=== PATIENT | female | born 1990 | race Caucasian/White ===

== ENCOUNTER 2016-10-29 15:14 | Emergency (ER) | payer SELFPAY ==
[~2016-10-29] VITALS: Ht 160 cm; Wt 79.5 kg
[~2016-10-29 15:14] MED LIST: NPR500T PO; ONDA4TAB9 PO
[2016-10-29 15:15] VITALS: BP 126/95; PULSE 77; RESP 16; O2SAT 100
--- NOTE | 2016-10-29 15:51 | ED.REPORT ---
HPI-General Illness Date of Service Oct 29, 2016 ED Provider: Dr. Cornell Pt is a healthy 25 y/o female presenting to the ED c/o worsening right flank pain onset 06:00 today. The patient tried to eat a banana but became nauseous with decreased appetite and has caused diaphoresis. Her pain was initially dull and mild but has become sharp and constant. Her pain seems to radiate somewhat to the RUQ and is not exacerbated or relieved by anything. Her pain today is not similar to her episode of symptomatic ovarian cyst. She denies any recent illnesses, bowel or bladder incontinence, fever, chills, vomiting, hematuria, bloody stools, vaginal discharge or bleeding, dysuria, constipation, diarrhea. She has never had any abdominal surgeries and she had a normal BM this morning. Her mother, brother, and sister all had gallbladder disease. She is self-pay. Nursing Notes Stated Complaint: RIGHT SIDE PAIN Chief Complaint: Female Abdominal Pain Nursing Notes Reviewed: Yes Allergies: Coded Allergies: No Known Allergies (Unverified Allergy, Unknown, 10/29/16) Scheduled PRN Naproxen (Naproxen) 500 Mg Tab 500 MG PO BID PRN PRN For Pain Ondansetron ODT (Zofran ODT) 4 Mg Tablet 4 MG PO Q4H PRN PRN For Nausea General Time Seen by MD: 15:51 Chief Complaint Abdominal pain Hx Obtained From: Patient Arrived By: Walk-in Sudden in Onset?: No Onset Occurred: 9 - 12 hours ago Symptom Duration: Since onset Location: : Abdomen Quality: Painful Severity: Current: Severe Severity: Maximum: Severe Recent Healthcare: No recent doctor visit, No recent hospitalization Similar Sx Previous: No Past Medical History Past Medical History Ovarian Cyst Iron deficiency anemia after beginning menstruation Otherwise healthy Past Surgical History Denies Family History Gallbladder disease Smoking History Never Smoker Social History Alcohol Use: "Social" Drug Use: THC Ambulatory Status Independent Review of Systems Full Review of Systems Constitutional: Denies: Chills, Fever Respiratory: Denies: Non-productive cough, Shortness of breath Cardiovascular: Denies: Chest pain, Dyspnea on exertion GI: Reports: Abdominal pain, Anorexia, Nausea, Denies: Bloody/tarry stool, Constipation, Diarrhea, Hematochezia, Melena, Mucousy stool, Vomiting Female: Reports: Flank pain, Denies: Dysuria, Hematuria, Vaginal bleeding - abnl, Vaginal discharge Neurologic: Denies: Bladder dysfunction, Bowel dysfunction Complete sys rev & neg: except as marked. Physical Exam Constitutional: Well-developed, well-nourished. Diaphoretic. Uncomfortable and in pain. Moderate distress secondary to pain. Tearful. Head: Normocephalic and atraumatic. Mouth/Throat: Oropharynx is clear and moist. No oropharyngeal exudate. Eyes: EOM are normal. Pupils are equal, round, and reactive to light. Neck: Supple, no tracheal deviation. Cardiovascular: Normal rate, regular rhythm. Equal and intact distal pulses throughout. Pulmonary/Chest: Effort normal and breath sounds normal. No respiratory distress. Abdominal: Soft. No distension. Diffuse tenderness about right upper abdomen and right flank. No lower abdominal tenderness. No rebound or guarding. Bowel sounds present. Right CVAT present. Musculoskeletal: Range of motion grossly intact, moving all extremities. No edema appreciated. Neurological: AOx3. Grossly nonfocal exam. Strength and sensation intact and equal to bilateral upper and lower extremities. Skin: Warm and dry, no rashes or pallor appreciated. Psychiatric: Appropriate mood and affect. Behavior appears normal. Vital Signs Vital Signs Date Time Temp Pulse Resp B/P Pulse Ox O2 Delivery O2 Flow Rate FiO2 10/29/16 23:22 36.8 68 16 121/54 97 Room Air 10/29/16 22:47 68 16 121/54 97 Room Air 10/29/16 18:32 84 18 129/42 100 Room Air 10/29/16 17:02 66 16 139/74 100 Room Air 10/29/16 15:15 36.8 77 16 126/95 100 Room Air Initial VS: Reviewed, Vital signs normal Interpretation & Diagnostics Lab Results Interpretation Result Diagram: 10/29/16 1620 10/29/16 1620 Test 10/29/16 15:52 10/29/16 16:20 10/29/16 17:04 Urine Color Yellow (YELLOW) Urine Appearance Clear (CLEAR,HAZY) Urine pH 8.5 (5.0-8.0) Urine Specific [place] 1.015 (1.003-1.035) Urine Protein Tracemg/dL (NEG,TRACE) Urine Glucose (UA) Negativemg/dL (NEGATIVE) Urine Ketones Negativemg/dL (NEGATIVE) Urine Occult Blood Small (NEGATIVE) Urine Nitrite Negative (NEGATIVE) Urine Bilirubin Negative (NEGATIVE) Urine Urobilinogen Normalmg/dL (NORMAL) Urine Leukocyte Esterase Small (NEGATIVE) Urine RBC 0-2/hpf (0-2) Urine WBC 6-10/hpf (0-5) Urine Epithelial Cells Many/hpf (NONE-MOD) Urine Crystals None seen (NONE SEEN) Urine Bacteria Many/hpf (NONE-FEW) Urine Hyaline Casts None/lpf (NONE) Urine Granular Casts None seen (NONE SEEN) Urine Waxy Casts None seen (NONE SEEN) Urine Red Blood Cell Casts None seen (NONE SEEN) Urine White Blood Cell Casts None seen (NONE SEEN) Urine Mucus None seen (None Seen) Urine Trichomonas None seen (NONE SEEN) Urine Yeast None (NONE SEEN) Urinalysis Comment None Urine Culture Reflexed Indicated White Blood Count 9.8th/mm3 (3.8-10.1) Red Blood Count 4.35mil/mm3 (3.90-5.20) Hemoglobin 12.5g/dL (12.0-15.6) Hematocrit 36.4% (35.0-46.0) Mean Corpuscular Volume 83.7fL (81-100) Mean Corpuscular Hemoglobin 28.7pg (27.0-35.0) Mean Corpuscular Hemoglobin Concent 34.3% (32.0-37.0) Red Cell Distribution Width 13.5% (12.3-15.4) Platelet Count 452bil/L (150-400) Neutrophils (%) (Auto) 66.3% (40-74) Lymphocytes (%) (Auto) 19.5% (14-46) Monocytes (%) (Auto) 7.9% (4-12) Eosinophils (%) (Auto) 5.7% (0-5) Basophils (%) (Auto) 0.4% (0-3) Prothrombin Time 10.7sec (8.1-12.5) Prothromb Time International Ratio 1.00ratio Sodium Level 137mEq/L (134-144) Potassium Level 3.5mEq/L (3.5-5.2) Chloride Level 101mEq/L (97-108) Carbon Dioxide Level 21mmol/L (18-29) Blood Urea Nitrogen 7mg/dL (6-20) Creatinine 0.54mg/dL (0.57-1.00) Estimat Glomerular Filtration Rate 200mL/min (>59) Glucose Level 99mg/dL (60-99) Calcium Level 9.3mg/dL (8.5-10.1) Magnesium Level 1.8mg/dL (1.6-2.6) Total Bilirubin 0.4mg/dL (0.0-1.2) Aspartate Amino Transf (AST/SGOT) 12U/L (0-50) Alanine Aminotransferase (ALT/SGPT) 8U/L (0-32) Alkaline Phosphatase 54U/L (25-150) Total Protein 7.6g/dL (6.4-8.4) Albumin 4.2g/dL (3.4-5.0) Lipase 34U/L (13-60) Lactic Acid Level 0.8mmol/L (0.4-2.0) CT Abd / Pelvis Interpretation IMPRESSION: 1. There is mild fat stranding in the right abdomen just below the hepatic flexure and lateral to the ascending colon. The appendix is normal. The CT finding may be secondary to epiploic. Recommend clinical correlation. 2. Small amount of free fluid in paracolic gutters bilaterally. 3. A complex cyst in the right adnexa measuring 4.4 x 5.3 cm. There is a small amount of complex free fluid in in the cul-de-sac. The CT finding could be secondary to ruptured hemorrhagic ovarian cyst. The differential diagnosis is a tubo-ovarian abscess. Pelvic ultrasound may be helpful if clinically indicated. 4. No urinary stones or hydronephrosis. Dictated by: Asaf Posada M.D. on 10/29/2016 at 17:43 Approved by: Asaf Posada M.D. on 10/29/2016 at 17:57 Study type: Abdominal CT IV contrast Interpretation / Wet Read by: Interpret - Radiologist, Discussed w radiologist US Focused non-OB Pelvis IMPRESSION: 1. A complex mass is present in the right adnexa. There is moderate amount of free fluid with internal echo within the cul-de-sac. On Doppler ultrasound, there is no definitive internal vascularity within the mass. No evidence for dilated fallopian tubes (hydrosalpinx). The right ovary is identified and has normal morphology and vascularity. The left ovary is not visualized. Differential diagnoses for this right adnexal mass include a tubo-ovarian abscess, a hematoma, and less likely a neoplastic mass. The left ovary is not identified on the ultrasound. A torsed left ovary located in the right adnexa is a possibility, but felt highly unlikely. The left ovary could be seen on the CT performed earlier today and had normal appearance. CNC SET UP OPERATOR consultation is suggested. 2. Normal uterus. Dictated by: Asaf Posada M.D. on 10/29/2016 at 20:49 Transcribed by: JABARI on 10/29/2016 at 21:00 Approved by: Asaf Posada M.D. on 10/29/2016 at 21:28 Exam Performed by: Allied health pract Exam Type: Diagnostic Exam Interpreted by: Radiologist Re-Eval/Medical Decision Med Decision/Clinical Course 25F w/ R sided abd pain. Primarily R flank and upper part of R abdomen. Labs reviewed, noted above. CT w/ no evidence of appendicitis, though is consistent w / epiploic appendagitis. On reassessment, still w/ significant pain. Decision to obtain TVUS made and this demonstrated a mass in the R adnexa concerning for TOA or less likely ovarian torsion. Consulted w/ CNC SET UP OPERATOR as below. They feel she's safe to go home, do not think it's a TOA or other infection, nor torsion; this seems reasonable. Very careful return precautions discussed. Patient agree able to plan, no further questions. Time of Eval: 18:45 Re-Evaluation/Progress Note: Pt rechecked. Feeling better and pain improved. Awaiting pelvic US. Time of Eval: 20:30 Patient Status: Condition improved, Mild relief, Pain improved Re-Evaluation/Progress Note: Pt rechecked. Informed pt of need for possible admission due to concern for tubo-ovarian abscess. Pt understands and agrees with plan. All questions addressed. Time of Eval: 22:45 Re-Evaluation/Progress Note: Pt rechecked. After CNC SET UP OPERATOR consult plan for discharge. Informed pt of plan for treatment. Pt understands and agrees with plan for treatment. F/U instructions and RTER warnings given. All questions addressed. Consultation : Referral / Consult Name: Gabby Soliman MD Call Returned at: 20:56 Low Emission Automobile Designer: Will see patient, Agrees with eval, Agrees with plan Note: Discussed case with OB-CNC SET UP OPERATOR. Will review imaging and call back. 22:36 - after evaluation in the ED. Believes the patient is OK to go home from a CNC SET UP OPERATOR perspective. Does not think she has a TOA or torsion. Believes she has a ruptured ovarian cyst. Will see the patient in follow-up. Counseled Regarding: Diagnosis, Lab results, Need for follow-up, When/why to return to ED Discharge & Departure Primary Impression: Abdominal pain Abdominal location: lower abdomen, unspecified Qualified Code: R10.30 - Lower abdominal pain, unspecified Additional Impression: Epiploic appendagitis Disposition: Home Discharge Condition All VS Reviewed: Yes Condition: Improved Patient Instructions: Acute Abdominal Pain (ED) Additional Instructions: Your CT scan today shows a possibility for epiploic appendagitis. Take [place] every 6 hours as directed for severe or breakthrough pain. See the instructions below for this medication. Otherwise take 600 mg Ibuprofen every 6 hours for aching pain. Return to the emergency department if you experience worsening abdominal pain, fever, persistent vomiting, or for other symptoms concerning to you. Follow-up with a primary care doctor and the CNC SET UP OPERATOR doctor by the end of the week. If you do not have a primary care doctor the [facility] is happy to see you. You have been prescribed a narcotic for pain relief. These drugs are usually combined with acetaminophen (Tylenol#3, Percocet, Darvocet, Anexsia, Vicodin) or aspirin (Empirin#3, Percodan, Synalogs-DC) for increased effect. Narcotics act on the central nervous system to reduce pain; they also impair mental alertness and physical abilities. We advise you not to drink alcohol, drive a car, or operate dangerous equipment when you are taking these drugs. You can lessen stomach irritation from your medicine by taking it with meals or a full glass of water. Common side effects of narcotics are: Nausea and vomiting, heartburn, constipation, dizziness, sleepiness, and mood changes. If you have bothersome side effects or symptoms of an allergic reaction (itching, hives, rash), stop taking your medicine and call your doctor or the emergency room right away. Please keep your narcotic medicine well out of the reach of children. Referrals: Gabby Soliman MD [facility] Scribe Attestation Portions of this note were transcribed by Dimitris Lewis. I, Dr. Cornell, personally performed the history, physical exam and medical decision-making; I reviewed and confirmed the accuracy of the information in the transcribed note. Signed by Jose Walsh, 10/29/16 - 1599 copies to: Gabby Soliman MD; [facility] Chinmay Cornell MD Oct 29, 2016 15:51 DIMITRIS LEWIS Oct 29, 2016 16:01
[2016-10-29] MEDS ORDERED: 0.9% Sodium Chloride 1,000 ML IV ONE (15:58)
[2016-10-29] MEDS ORDERED: Ondansetron 2 mg/mL 2 mL Inj IVPUSH PRN (16:00)
[2016-10-29 16:06] LABS: APPEARANCE,URINE CLEAR (CLEAR,HAZY); COLOR,URINE YELLOW (YELLOW); OCCULT BLOOD,URINE SMALL (NEGATIVE); PH,URINE 8.5 (5.0-8.0); UROBILINOGEN,URINE NORMAL (NORMAL)
[2016-10-29] MEDS: HYDROmorphone 0.5 mg/0.5 mL iSecure Syringe IVPUSH PRN ×4 (16:26→17:48)
[2016-10-29 16:42] LABS: BASOPHILS % (AUTO) 0.4 % (0-3); EOSINOPHILS % (AUTO) 5.7 % (0-5); MONOCYTES % (AUTO) 7.9 % (4-12); Mean Corpuscular Hemoglobin 28.7 pg (27.0-35.0); Mean Corpuscular Volume 83.7 fL (81-100); NEUTROPHILS % (AUTO) 66.3 % (40-74); Platelet Count 452 bil/L (150-400)
[2016-10-29 17:02] VITALS: BP 139/74; PULSE 66; RESP 16; O2SAT 100
[2016-10-29 17:09] LABS: Magnesium 1.8 mg/dL (1.6-2.6)
--- NOTE | 2016-10-29 17:59 | DRSVH ---
PROCEDURE: CT ABDOMEN AND PELVIS WITH CONTRAST ([id number]) INDICATIONS: Right upper abdominal pain and flank pain. TECHNIQUE: After the administration of intravenous contrast, 5 mm thick sections acquired from the diaphragm to the symphysis. 5 mm coronal and sagittal reformats were acquired. For radiation dose reduction, the following was used: automated exposure control, adjustment of mA and/or kV according to patient dirk chase. COMPARISON: [facility], CT, CT KUB, 02/10/2015, 13:03. FINDINGS: Image quality: Excellent. ABDOMEN: Lung bases: Lung bases are clear. Heart size is normal. Solid organs: Liver and spleen are normal in size and enhancement. Gallbladder is normal. Biliary system is non dilated. Pancreas enhances normally. No adrenal nodules. Kidneys demonstrate normal size and enhancement, without hydronephrosis. Peritoneum and bowel: Appendix is normal. There is mild stranding in the right abdomen just lateral to the ascending colon below the hepatic flexure. Bowel loops demonstrate normal wall thickness and c aliber. A small amount of free fluid is present in the paracolic gutters bilaterally. No free air. Nodes and vessels: No retroperitoneal or mesenteric adenopathy by size criteria. There are several normal-sized lymph nodes in the right lower quadrant, which appears unchanged and are nonspecific. Ao rta and inferior vena cava are normal in size. Miscellaneous: No ventral hernias. PELVIS: Genitourinary: Bladder wall thickness is normal. There is a complex cyst in the right adnexa measur ing 4.4 x 5.3 cm. A small amount of complex fluid is present in the cul-de-sac. Miscellaneous: No inguinal hernias or adenopathy. Bones: No suspicious bony lesions. No vertebral body compression fractures. IMPRESSION: 1. There is mild fat stranding in the right abdomen just below the hepatic flexure and lateral to the ascending colon. The appendix is normal. The CT finding may be secondary to epiploic. Recommend clin ical correlation. 2. Small amount of free fluid in paracolic gutters bilaterally. 3. A complex cyst in the right adnexa measuring 4.4 x 5.3 cm. There is a small amount of complex free fluid in in the cul-de-sac. The CT finding could be secondary to ruptured hemorrhagic ovarian cyst. The differential diagnosis is a tubo-ovarian abscess. Pelvic ultrasound may be helpful if clinically indicated. 4. No urinary stones or hydronephrosis. Dictated by: Asaf Posada M.D. on 10/29/2016 at 17:43 Approved by: Asaf Posada M.D. on 10/29/2016 at 17:57
[2016-10-29] MEDS ORDERED: HYDROmorphone 1 mg/mL Inj IVPUSH ONE ×2 (18:25→22:00)
[2016-10-29 18:32] VITALS: BP 129/42; PULSE 84; RESP 18; O2SAT 100
--- NOTE | 2016-10-29 21:01 | DRSVH ---
PROCEDURE: US PELVIC SONOGRAM WITH TRANSVAG AND DOPPLER, LIMITED INDICATIONS: Right-sided abdominal pain. TECHNIQUE: Real-time scanning was performed of the pelvic organs, with image documentation. Additional endovagi nal scanning was necessary due to incomplete visualization of the adnexal and endometrial structures by transabdominal scanning. COMPARISON: [facility], CT, CT ABD PELVIS W CON, 10/29/2016, 17:32. FINDINGS: (orthogonal measurements) Uterus size: 7.54 cm, 3.39 cm, 4.01 cm Endometrium thickness: 8.10 mm Right ovary size: 2. 2.19 cmx 3.51 cm x 4.20 cm Left ovary size: n.a. Transabdominal scanning: Limited scanning through the kidneys shows no hydronephrosis. No pathologi c free abdominal or pelvic fluid. Endovaginal scanning: Uterus: Uterus is normal in size and appearance. Endometrium is within normal physiologic limits. Ovaries: Left ovary is not visualized. Right ovary measures 2.2 x 3.5 x 4.2 cm. On Doppler ultrasoun d, there is both arterial and venous flow to the right ovary. There is complex mass in the right adne xa measuring 5.4 x 3.2 cm. There is moderate amount of complex fluid in the pelvis. IMPRESSION: 1. A complex mass is present in the right adnexa. There is moderate amount of free fluid with interna l echo within the cul-de-sac. On Doppler ultrasound, there is no definitive internal vascularity with in the mass. No evidence for dilated fallopian tubes (hydrosalpinx). The right ovary is identified an d has normal morphology and vascularity. The left ovary is not visualized. Differential diagnoses for this right adnexal mass include a tubo-ovarian abscess, a hematoma, and less likely a neoplastic mas s. The left ovary is not identified on the ultrasound. A torsed left ovary located in the right adnex a is a possibility, but felt highly unlikely. The left ovary could be seen on the CT performed shamika today and had normal appearance. SPICE BLENDER consultation is suggested. 2. Normal uterus. Dictated by: Asaf Posada M.D. on 10/29/2016 at 20:49 Transcribed by: JABARI on 10/29/2016 at 21:00 Approved by: Asaf Posada M.D. on 10/29/2016 at 21:28
[2016-10-29 22:47] VITALS: BP 121/54; PULSE 68; RESP 16; O2SAT 97
[2016-10-29] MEDS ORDERED: _HYDROcodone/APAP 5-325 mg Tablet PO PRN (22:50)
[2016-10-29 23:22] VITALS: BP 121/54; PULSE 68; RESP 16; O2SAT 97
--- NOTE | 2016-10-29 23:49 | ER ---
[address] [address] EMERGENCY DEPARTMENT REPORT PATIENT: RUBEN VICTORIA : 1990 MR#: [id number] ADMIT: 10/29/2016 JOB ID: [id number] DATE OF SERVICE: 10/29/2016 HISTORY OF PRESENT ILLNESS: A 25-year-old female, 0, presented to the emergency department for abdominal pain. Her pain started this morning. She realized it was right flank pain this morning when she woke up. It was a mild pain. This right flank pain gradually became worse and radiated to her right lower abdomen. She does have nausea but no vomiting. there's not anything making it better or making it worse. Position does not make any change. She does not feel she has fever. She did not have similar episode before. ALLERGIES: She has no known drug allergies. PAST MEDICAL HISTORY: She declined other medical problems. She declined history of major surgery. GYNECOLOGIC HISTORY: She had a regular menstrual cycle. Her last menstrual periods was October 19, which was regular. She has a remote history of ovarian cyst which was diagnosed a few years ago. Per patient, she had a PRODUCTION DRILLING MACHINE OPERATOR examination at [facility] in February 2016. She had a blood test and ultrasound. They were all negative. OBSTETRICAL HISTORY: She has never been . PHYSICAL EXAMINATION: She is afebrile. Her blood pressure and pulse in normal range. Her abdomen is soft. Speculum examination was not performed. Bimanual examination with cmm programmer present showed her cervix was closed. There was no significant CMT. Very mild tender uterus. Left adnexa area soft, no mass, nontender. Right adnexa area soft, slightly full, slightly tender. No guarding, no rebound. Her CBC showed there was no elevated white count. Her urine test was negative. Bedside ultrasound showed her uterus is normal size and appearance, 7.54 x 3.39 x 4.01. Endometrium thickness 8.1 mm. Right ovary 2.19 x 3.5 x 4.0 cm. Left ovary was not seen. On the ultrasound it is mentioned a complex mass is present in the right adnexa. There is a moderate amount of free fluid with internal echo within the caudal sac. On Doppler ultrasound there is no definite internal vascularity within the mass. No evidence for dilated fallopian tube, hydrosalpinx. The right ovary is identified and has normal morphology and vascularity. The left ovary is not visualized. Differential diagnosis for the right adnexal mass include a tubo-ovarian abscess, hematoma, or less likely neoplastic mass. The left ovary is not identified on the ultrasound. A torsed left ovary located in the right adnexa is a possibility, but felt highly likely. The left ovary could be seen on the CT performed earlier today and had normal appearance. PRODUCTION DRILLING MACHINE OPERATOR consultation suggested. ASSESSMENT AND PLAN: A 25-year-old female, right flank pain radiated to right lower abdomen. The finding of a moderate amount of free fluid with right adnexa mass. patient's pain which started only from this morning, is gradually starting, and generally became worse. She had no fever, no white count. Combining the picture, the likelihood of tubo-ovarian abscess and ovarian torsion is not likely. There is a possibility of ruptured cyst and a forming hematoma, is more consistent with the clinical picture. The patient is 25 years old. The suspicion of malignancy is low. Her vitals stable. At this time, from Gynecologic point of view, patient could be managed as an outpatient for pain management, and I recommended to patient follow up with PRODUCTION DRILLING MACHINE OPERATOR in two weeks. If pain not well controlled or developing fever, or if symptoms deteriorating, she needs to come back to the emergency department for further evaluation and management. Discussed with patient about my evaluation and plan. Discussed with emergency department physician, Dr. Cornell, of my evaluation and plan. LIZBETH
== END 2016-10-29 23:22 | disposition home or self-care (01) ==
LOC: SED 15:14
DX: R10.30 Lower abdominal pain, unspecified (principal); Q43.8 Other specified congenital malformations of intestine
CPT/HCPCS: 36415; 74177; 76830; 76856; 80053; 81000; 81025; 83605; 83690; 83735; 85025; 85610; 87086; 87088; 93976; 96361; 96374; 96375; 96376; 99285; J1170; J2405; J7030; Q9967